=== PATIENT | male | born 1945 | race Caucasian/White ===

== ENCOUNTER → 2018-03-01 | Outpatient (CLI) | payer MEDICARE ==
[~2018-03-01] MED LIST: ANTARA130 MG PO; ASPIR 8181 MG PO; AVODART0.5 MG PO; BACLOFEN10 MG PO; CALCIUM CITRAT1 EAC9 PO; COQ-10100 MG PO; FINASTERIDE5 MG PO; MAGNESIUM OXID400 MG PO; MELOXICAM7.5 MG PO; MULTIVITAMINS1 EAC8 PO; PROTONIX40 MG PO; TAMSULOSIN HCL0.4 MG PO; VITAMIN B12 PO; VITAMIN C500 M1 PO; VITAMIN D32000 UNI1 PO; ZYRTEC10 M3 PO
== END ==
LOC: CARD 08:47
PROVIDERS: ATTEND Family Medicine
DX: I25.10 Atherosclerotic heart disease of native coronary artery without angina pectoris (principal); R09.89 Other specified symptoms and signs involving the circulatory and respiratory systems
CPT/HCPCS: 93880

== ENCOUNTER → 2018-03-20 | Outpatient (CLI) | payer MEDICARE ==
[~2018-03-20] MED LIST changes: +IOPAMIDOL 370 MG/ML 200 ML INFUS..BTL INJ ONE; +SODIUM CHLORIDE 0.9% 50ML 50 ML ONE
[2018-03-20 13:07] LABS: BLOOD UREA NITROGEN 16 mg/dL (7-26); BUN/CREATININE RATIO 16 (6-25); CREATININE, SERUM 0.98 mg/dL (0.72-1.25); EST GLOMERULAR FILTRATION RATE > 60 ML/MIN (60-)
--- NOTE | 2018-03-21 10:15 | Diagnostic Imaging Report ---
EXAMINATION: CT angiogram of the neck CLINICAL HISTORY: Carotid artery stenoses, diminished blood flow on the right side. COMPARISON STUDIES: None TECHNIQUE: Axial images were obtained from the thoracic inlet. Coronal and sagittal images reconstructed from the axial data. For optimization of of anatomic evaluation, multi-planar reconstructions, maximum intensity projections, and advanced 3D off-line post-processing was obtained and performed on a dedicated stand-alone workstation under the direct supervision of the interpreting physician. Intravenous contrast: 100 mL of Isovue-370. Dose modulation, iterative reconstruction, and/or weight based adjustment of the mA/kV was utilized to reduce the radiation dose to as low as reasonably achievable. FINDINGS: If present, stenosis of the carotid bulbs is measured based on NASCET criteria i.e area of maximum stenosis compared to the cervical ICA distal to the bulb. Aortic arch and major vessels: Patent. No abnormalities. Very minimal calcified atherosclerotic plaque in the bilateral carotid bifurcations without associated stenoses. Common carotid arteries: Right: Patent. No abnormalities. Left :Patent. No abnormalities. Carotid bulbs: Right: Patent. No abnormalities. Left :Patent. No abnormalities. Internal carotid arteries: Right: Patent. No abnormalities. Left: Patent. No abnormalities. Vertebral arteries: Patent. No abnormalities. Incidental findings: The anterior and bilateral posterior communicating arteries are patent. IMPRESSION: Normal CT angiogram of the neck, particularly no carotid or vertebral artery stenoses or occlusion. Signed by: Dr. Emily Benson M.D. on 03/21/2018 10:12 AM
== END ==
LOC: CT 11:25
PROVIDERS: ATTEND Family Medicine
DX: I77.89 Other specified disorders of arteries and arterioles (principal)
CPT/HCPCS: 36415; 70498; 82565; 84520; Q9967

== ENCOUNTER → 2018-10-31 | Outpatient (CLI) | payer MEDICARE ==
[~2018-10-31] MED LIST changes: -IOPAMIDOL 370 MG/ML 200 ML INFUS..BTL INJ ONE; -SODIUM CHLORIDE 0.9% 50ML 50 ML ONE
--- NOTE | 2018-10-31 19:05 | Diagnostic Imaging Report ---
Exam: Thoracic spine MRI without IV contrast History: Pain radiates to right shoulder and arm. Comparison studies: None Technique: Sagittal, axial coronal T2, sagittal T1 and sagittal STIR. Findings: Curvature: Normal kyphosis. No scoliosis. Paraspinal soft tissues: No signal abnormalities. Spinal cord: Focal increased cord signal at C5-C6 as seen on the manager fire sequence. Unclear if findings may reflect incidental prominent central canal or chronic cortical signal changes as sequela of degenerative canal stenosis at this level. The cord is normal in size and signal from T1 to the tip of the conus at T12-L1. Vertebrae: No fractures or infection. Incidental benign T1 hyperintense T12 vertebral body hemangioma. Degenerative changes: Mildly degenerated disks from T1 to T10. Patent thoracic canal and foramina. No disc herniation. Partially imaged degenerative changes in the cervical spine with moderate to severely degenerated disks from C3 to C7 with disc osteophyte complexes which indent the thecal sac. There is at least mild canal stenosis at C5-C6 due to a disc osteophyte complex and thickened ligamentum flavum (cannot further evaluate the absence of an axial sequence through this level). Nonspecific focal cord signal abnormality present at this level, as above. Incidental findings: Partially imaged 1.9 cm T2 lesion in the midpole of the left kidney is most likely a cyst. IMPRESSION: 1. Minimal multilevel thoracic disc degeneration. No focal disc herniation, canal stenosis, foraminal stenosis or nerve root impingement in the thoracic spine. 2. Incompletely evaluated advanced multilevel degenerative changes in the cervical spine with focal cord signal abnormality at C5-C6 as described. Dedicated cervical spine MRI may further evaluate. Signed by: Dr. Esa Villanueva M.D. on 10/31/2018 7:01 PM
--- NOTE | 2018-11-01 08:03 | Diagnostic Imaging Report ---
TECHNIQUE: Magnetic resonance imaging of right shoulder and humerus was performed WITHOUT injected contrast. COMPARISON: None available. HISTORY: Pain and FINDINGS: MUSCLES AND TENDONS: Rotator Cuff: Tendons: Full thickness tear of the supraspinatus tendon with posterior propagation as a partial-thickness articular sided tear into the infraspinatus tendon. Retraction of the fibers measuring 2 to 3 cm. Additional partial-thickness tearing of the subscapularis. Muscles: Severe atrophy of the teres minor. Biceps Tendon: The long head of the biceps tendon is intact and within the intertubercular groove. GLENOHUMERAL JOINT: High riding humeral head. Glenoid Labrum: Superior labral tearing. Articular Cartilage: Partial-thickness cartilage loss AC JOINT AND ACROMION: Mild hypertrophic degenerative changes of the acromioclavicular joint. The acromion is unremarkable. BONE: No acute fracture. SOFT TISSUES: Fluid within the subacromial subdeltoid bursa. The muscle bulk of the right upper extremity is intact. No atrophy. No soft tissue mass lesion. The bone marrow signal of the humerus is normal. No edema or infiltrating lesion. IMPRESSION: Supraspinatus full-thickness tear with posterior propagation as a partial-thickness articular sided tear into the infraspinatus tendon with retraction as above. No atrophy. High riding humeral head with superior labral tearing and partial thickness glenohumeral cartilage loss. Signed by: Dr. Bhavesh Singer M.D. on 11/01/2018 8:00 AM
== END ==
LOC: MRI 13:06
PROVIDERS: ATTEND Family Medicine
DX: M54.6 Pain in thoracic spine (principal); M25.511 Pain in right shoulder; M79.621 Pain in right upper arm
CPT/HCPCS: 72146

== ENCOUNTER → 2018-11-14 | Outpatient (CLI) | payer MEDICARE ==
--- NOTE | 2018-11-14 12:38 | Diagnostic Imaging Report ---
MRI SPINE CERVICAL WO HISTORY: Right shoulder, neck pain COMPARISON: Thoracic spine MRI 10/31/2018; CTA of the neck 03/20/2018 TECHNIQUE: Sagittal T1, sagittal T2, sagittal inversion recovery, axial T2 and axial T1 weighted MR images of the cervical spine were obtained without intravenous contrast. DISCUSSION: Alignment: Slight straightening of the cervical lordosis. No scoliosis. Vertebrae: No definite evidence for fractures, or neoplasm. Small nodular T1 hyperintense lesion in the T4 vertebral body is a benign hemangioma. Cervicomedullary junction: No abnormalities. Spinal cord: Mild focal central cord T2 hyperintensity at C5-C6 is not associated with significant cord expansion or volume loss. The cord is otherwise normal in signal and morphology from the foramen magnum through T4-T5. Soft tissues: Approximately 1.1 cm nodular subcutaneous T2 hyperintense lesion in the left posterior mid neck may be an inclusion cyst. Multilevel advanced cervical disc degeneration is present. Multilevel inflammatory endplate changes, most prominent at C5-C6, are nonspecific. Mild atlantoaxial arthrosis is present as well. C2-C3: Mild bilateral foraminal stenoses due to uncovertebral and facet arthrosis. No significant canal stenosis. C3-C4: Mild canal stenosis due to posterior disc osteophyte complex and ligamentum flavum thickening. Mild to moderate right and moderate left foraminal stenoses due to uncovertebral and facet arthrosis. There is mild periarticular edema along the left C3-C4 facet joint. C4-C5: Mild canal stenosis due to posterior disc osteophyte complex and ligamentum flavum thickening. Mild to moderate right and moderate left foraminal stenoses due to uncovertebral and facet arthrosis. C5-C6: Moderate canal stenosis due to posterior disc osteophyte complex and ligamentum flavum thickening. Severe bilateral foraminal stenoses due to uncovertebral and facet arthrosis. C6-C7: Mild bilateral foraminal stenoses due to uncovertebral and facet arthrosis. No significant canal stenosis. C7-T1: Patent canal and foramina. IMPRESSION: 1. Multilevel advanced cervical disc degeneration. Nonspecific multilevel inflammatory endplate changes, most prominent at C5-C6. 2. Multilevel degenerative canal stenoses - moderate at C5-C6. 3. Associated mild focal central cord T2 hyperintensity at C5-C6 due to gliosis/chronic ischemia. 4. Multilevel degenerative foraminal stenoses - severe bilaterally at C5-C6. 5. Suspected mild left C3-C4 facet synovitis. Signed by: Dr. Raciel Blanca M.D. on 11/14/2018 12:35 PM
== END ==
LOC: MRI 10:13
PROVIDERS: ATTEND Family Medicine
DX: M48.07 Spinal stenosis, lumbosacral region (principal)
CPT/HCPCS: 72141